=== PATIENT | male | born 1990 | race Caucasian/White ===

== ENCOUNTER 2017-03-29 22:38 | Emergency (ER) | payer BC, MEDICAID ==
[~2017-03-29] VITALS: Ht 172.7 cm; Wt 108.9 kg
--- NOTE | 2017-03-29 22:53 | NUR ---
Pt is received alert, responsive with family at bedside as he caome in c/o left 3rd finger pain. His care continue as he is been seen by MD.
--- NOTE | 2017-03-29 23:23 | NUR ---
Pt remain alert, responsive as he is been medicated with [place] 10mg-325mg po for pain and Zofan 4mg po for N/Vomiting as X-RAY to left finger. His care xcontinue as awaits results.
[2017-03-29 23:36] VITALS: BP 143/67
--- NOTE | 2017-03-29 23:36 | NUR ---
Pt is been discharge to home with prescription off [place] 5mg -325mg po [id number] prn for pain with instructions given on [facility].
== END 2017-03-29 23:41 | disposition home or self-care (01) ==
LOC: ER 22:40
DX: S62.615A Displaced fracture of proximal phalanx of left ring finger, initial encounter for closed fracture (principal); S63.255A Unspecified dislocation of left ring finger, initial encounter; X50.0XXA Overexertion from strenuous movement or load, initial encounter; Y93.89 Activity, other specified; Y92.9 Unspecified place or not applicable; Y99.9 Unspecified external cause status
CPT/HCPCS: 29130; 73130; 99284; A4663; Q0162

== ENCOUNTER 2020-10-02 15:45 | Emergency (ER) | payer MEDICAID, OTHER ==
[~2020-10-02] VITALS: Ht 172.7 cm; Wt 99.8 kg
[2020-10-02] MEDS ORDERED: PENICILLIN V POTASSIUM 500 MG TABLET PO STA (16:25)
[2020-10-02] MEDS ORDERED: PENI500T PO (16:29)
[2020-10-02] MEDS ORDERED: IBUP-1957 PO (16:29)
[2020-10-02] MEDS ORDERED: DEXAMETHASONE SOD PHOSPHATE 4 MG INJ IM ONE (16:30)
[2020-10-02] MEDS ORDERED: KETOROLAC TROMETHAMINE 60 MG INJ IM ONE ×2 (16:30→16:38)
[2020-10-02] MEDS ORDERED: PENICILLIN V POTASSIUM 500 MG TABLET ONE (16:37)
[2020-10-02] MEDS ORDERED: DEXAMETHASONE SOD PHOSPHATE 10 MG INJ ONE (16:37)
--- NOTE | 2020-10-02 17:45 | NUR ---
PT WAS EVALUATED BY DR RICHARDS. PT WAS D/C'd TO HOME AFTER DR RICHARDS EVALUATION. D/C INSTRUCTIONS GIVEN TO THE PT BY DR RICHARDS.
[2020-10-02 17:46] VITALS: BP 138/71
== END 2020-10-02 17:47 | disposition home or self-care (01) ==
LOC: ER 15:47
DX: J02.9 Acute pharyngitis, unspecified (principal)
CPT/HCPCS: 96372 ×2; 99284; J1100; J1885; A4663

== ENCOUNTER 2021-02-12 22:55 | Emergency (ER) | payer OTHER ==
[~2021-02-12] VITALS: Ht 175.3 cm; Wt 99.8 kg
[~2021-02-12 22:55] MED LIST: IBUP-1957 PO; PENI500T PO
[2021-02-12] MEDS ORDERED: SULF1TAB48 PO (23:36)
[2021-02-12] MEDS ORDERED: IBUP-1957 PO (23:36)
[2021-02-12] MEDS ORDERED: CEPH500C2 PO (23:36)
[2021-02-12] MEDS ORDERED: SULFAMETH/TRIMETH 800/160 MG TABLET PO ONE (23:45)
[2021-02-12] MEDS ORDERED: CEphaleXIN 500 MG CAPSULE PO ONE (23:45)
[2021-02-12] MEDS ORDERED: CEphaleXIN 500 MG CAPSULE ONE (23:48)
[2021-02-12] MEDS ORDERED: SULFAMETH/TRIMETH 800/160 MG TABLET ONE ×2 (23:48→23:49)
[2021-02-12 23:50] VITALS: BP 126/89
--- NOTE | 2021-02-12 23:50 | NUR ---
Patient discharged to home in stable condition. Written and verbal after care instructions given. Patient verbalizes understanding of instructions. Stressed follow up or return to ER for worsening s/s.
== END 2021-02-12 23:51 | disposition home or self-care (01) ==
LOC: ER 22:57
DX: L03.113 Cellulitis of right upper limb (principal); F15.10 Other stimulant abuse, uncomplicated; Z72.0 Tobacco use
CPT/HCPCS: A4663